=== PATIENT | female | born 1960 | race Caucasian/White ===

== ENCOUNTER 2016-06-09 10:13 | Emergency (ER) | payer OTHER ==
[~2016-06-09] VITALS: Ht 162.6 cm; Wt 90.3 kg
[2016-06-09 10:17] VITALS: BP_SYST 155
--- NOTE | 2016-06-09 10:24 | NUR ---
Patient to ER bed 7 to gown for evaluation. Side rails up. Report given to Nataliya ARIAS.
--- NOTE | 2016-06-09 10:26 | NUR ---
DR REILLY AT BEDSIDE FOR EVALUATION
[2016-06-09] MEDS ORDERED: DIPH-TET-PERTUS Vaccine 0.5 ML VIAL (ADACEL) IM ONE (10:30)
--- NOTE | 2016-06-09 10:38 | NUR ---
PT REFUSED MOTRIN AND NORCO. PT ALSO REFUSING TO HAVE XRAYS DONE. DR REILLY AWARE
--- NOTE | 2016-06-09 10:43 | NUR ---
DR REILLY BACK IN TO SPEAK WITH PT RE: REFUSALS. PT WILL HAVE XRAYS DONE BUT DOES NOT WANT STITCHES. PT STATES SHE TOOK A MOTRIN 800MG PRIOR TO COMING INTO HOSPITAL ER.
[2016-06-09] MEDS ORDERED: IBUPROFEN 600 MG TABLET PO ONE (10:45)
[2016-06-09] MEDS ORDERED: HYDROcodone/ACETAMIN 7.5-325 MG TAB PO ONE (10:45)
--- NOTE | 2016-06-09 10:51 | NUR ---
TAKEN TO RADIOLOGY, AMBULATORY. DAUGHTER WITH PT.
[2016-06-09] MEDS ORDERED: BACITRACIN 1 GM OINT TP ONE (11:00)
--- NOTE | 2016-06-09 11:01 | NUR ---
Patient daughter's at nursing station requesting to be discharged. Spoke with daughter and patient who states pt doesn't want medication or sutures. Request to be cleaned/dressed and results of xray. Daughter stating they need to leave now. Dr. Springer notified.
--- NOTE | 2016-06-09 11:07 | NUR ---
Pt in nursing stating states "I need injection, infection" Pt escorted to Room [address] Springer updating pt on plan of care
--- NOTE | 2016-06-09 11:08 | NUR ---
PT NOW REFUSING TO HAVE TETANUS SHOT, DR REILLY SPEAKING WITH PT AT THIS TIME.
--- NOTE | 2016-06-09 11:20 | NUR ---
pt. agrees to have tetnus shot, and agrees to have the wound dressed
--- NOTE | 2016-06-09 11:39 | NUR ---
Patient given written and verbal discharge instructions and verbalizes understanding. ER MD dr. hopkins discussed with patient the results and treatment provided. Patient in stable condition. ID arm band removed. Rx of bacitracin motrin given. Patient educated on pain management and to follow up with PMD. Pain Scale 0/10 Opportunity for questions provided and answered.
[2016-06-09 11:40] VITALS: BP_SYST 127
== END 2016-06-09 11:40 | disposition home or self-care (01) ==
LOC: SED 10:13
DX: S61.012A Laceration without foreign body of left thumb without damage to nail, initial encounter (principal); E11.9 Type 2 diabetes mellitus without complications; W31.89XA Contact with other specified machinery, initial encounter; Y93.E3 Activity, vacuuming; Y92.89 Other specified places as the place of occurrence of the external cause; Y99.8 Other external cause status
CPT/HCPCS: 73140-TC; 90715; 99284

== ENCOUNTER 2017-11-18 22:58 | Emergency (ER) | payer OTHER ==
[~2017-11-18] VITALS: Ht 167.6 cm; Wt 81.6 kg
[2017-11-18 22:58] VITALS: BP_SYST 165
[2017-11-18] MEDS ORDERED: LORazepam 2 MG/ML VIAL (FOR ER USE) IM ONE (23:30)
[2017-11-18] MEDS ORDERED: KETOROLAC TROMETHAMINE 60 MG/2 ML VIAL IM ONE (23:30)
[2017-11-19 00:48] VITALS: BP_SYST 147
== END 2017-11-19 00:48 | disposition home or self-care (01) ==
LOC: SED 22:58
DX: R07.89 Other chest pain (principal); M54.9 Dorsalgia, unspecified; E11.9 Type 2 diabetes mellitus without complications; V89.2XXA Person injured in unspecified motor-vehicle accident, traffic, initial encounter; Y93.89 Activity, other specified; Y92.89 Other specified places as the place of occurrence of the external cause; Y99.8 Other external cause status
CPT/HCPCS: 71045; 96372; 99283; J1885; J2060